=== PATIENT | male | born 1970 | race Two or more races ===

== ENCOUNTER 2019-09-18 12:16 | Inpatient (IN) | payer MEDICARE, MEDICAID ==
[~2019-09-18] VITALS: Ht 185.4 cm; Wt 85.4 kg
[2019-09-18 15:15] VITALS: BP 146/74
[2019-09-18] MEDS: QUEtiapine FUMARATE 100 MG TABLET PO PRN (16:06)
[2019-09-18 16:42] VITALS: BP 146/74
[2019-09-18] MEDS ORDERED: INFLUENZA VIRUS VACCINE QVS 2019-20 (3YR+)/PF 60 MCG/0.5 ML SYRINGE IM ONE (17:30)
[2019-09-18] MEDS: LORazepam 2 MG TABLET PO PRN (20:04)
[2019-09-18] MEDS ORDERED: DOCUSATE SODIUM 100 MG CAPSULE PO PRN (20:15)
[2019-09-18] MEDS ORDERED: GuaiFENesin/D-METHORPHAN [SUGAR-FREE] 200-20MG/10 ML SYRUP UDCUP PO PRN (20:15)
[2019-09-18] MEDS ORDERED: ONDANSETRON HCL 4 MG TABLET PO PRN (20:15)
[2019-09-18] MEDS ORDERED: ALBUTEROL SULFATE HFA 90 MCG/PUFF 8 GM INHALER IH PRN (20:15)
[2019-09-18] MEDS ORDERED: CloNIDine HCL 0.1 MG TABLET PO PRN (20:15)
[2019-09-18] MEDS ORDERED: MAGNESIUM HYDROXIDE SUSPENSION 30 ML UDCUP PO PRN (20:15)
[2019-09-18] MEDS ORDERED: ACETAMINOPHEN 325 MG TABLET PO PRN (20:15)
[2019-09-18] MEDS ORDERED: PETROLATUM,WHITE 28 GM JELLY TP PRN (20:15)
[2019-09-18] MEDS ORDERED: LOPERAMIDE HCL 2 MG CAPSULE PO PRN (20:15)
[2019-09-18] MEDS ORDERED: NICOTINE 14 MG/24 HOUR PATCH TD PRN (20:15)
[2019-09-19] MEDS: QUEtiapine FUMARATE 100 MG TABLET PO PRN (00:04)
[2019-09-19] MEDS: LORazepam 2 MG TABLET PO PRN ×3 (00:04→16:34)
[2019-09-19] MEDS: ZOLPIDEM TARTRATE 10 MG TABLET PO PRN ×2 (01:07→21:47)
[2019-09-19 06:15] VITALS: BP 122/83
[2019-09-19 08:32] VITALS: BP 126/89
[2019-09-19] MEDS: QUEtiapine FUMARATE 200 MG TABLET PO SCH ×3 (10:45→21:00)
[2019-09-19] MEDS: LITHIUM CARBONATE 300 MG TABLET PO SCH ×2 (10:45→16:05)
[2019-09-19 17:00] VITALS: BP 145/91
[2019-09-20 01:30] VITALS: BP 133/94
[2019-09-20] MEDS: LORazepam 2 MG TABLET PO PRN ×3 (01:40→19:49)
[2019-09-20] MEDS: QUEtiapine FUMARATE 100 MG TABLET PO PRN (02:40)
[2019-09-20 04:48] VITALS: BP 137/92
[2019-09-20] MEDS: IBUPROFEN 400 MG TABLET PO PRN (04:51)
[2019-09-20 07:20] LABS: BASOPHILS % (AUTO) 0.5 % (0.0-2.0); EOSINOPHILS % (AUTO) 4.5 % (1.0-6.0); HEMATOCRIT 37.5 % (41-53); HEMOGLOBIN 12.4 g/dL (13.5-17.5); LYMPHOCYTES % (AUTO) 13.7 % (22.0-44.0); MEAN CORPUSCULAR HEMOGLOBIN 28.9 pg (26.0-34.0); MEAN CORPUSCULAR HGB CONC 33.2 G/dL (31.0-37.0); MEAN CORPUSCULAR VOLUME 87 fL (80-100); MONOCYTES # (AUTO) 0.7 K/uL (0.1-1.0); MONOCYTES % (AUTO) 9.7 % (2.0-9.0); NEUTROPHILS # (AUTO) 5.4 K/uL (1.8-7.7); NEUTROPHILS % (AUTO) 71.6 % (40.0-70.0); PLATELET COUNT (AUTO) 277 K/uL (150-450)
[2019-09-20 07:37] LABS: HEMOGLOBIN A1C 5.6 % (4.5-6.2)
[2019-09-20 07:49] LABS: ALANINE AMINOTRANSFERASE 58 U/L (12-78); ALBUMIN 3.8 g/dL (3.4-5.0); ALKALINE PHOSPHATASE 68 U/L (46-116); ANION GAP 5 mmol/L (8-16); ASPARTATE AMINOTRANSFERASE 45 U/L (15-37); BILIRUBIN,TOTAL 0.3 mg/dL (0.1-1.0); CARBON DIOXIDE 31 mmol/L (22-29); CHLORIDE 102 mmol/L (98-107); CHOLESTEROL 127 mg/dL (131-200); CREATININE 1.17 mg/dL (0.60-1.30); GLOMERULAR FILTR. RATE CALC > 60 mL/min (>60); GLUCOSE,RANDOM 102 mg/dL (70-110); HDL CHOLESTEROL 65 mg/dL (40-60); LDL CHOL (CALC.) 53 mg/dL (0-130); POTASSIUM 3.4 mmol/L (3.5-5.1); SODIUM SERUM 138 mmol/L (136-145); THYROID STIMULATING HORMONE 0.38 uIU/mL (0.36-3.74); TOTAL PROTEIN, SERUM 7.6 g/dL (6.4-8.2); TRIGLYCERIDES 44 mg/dL (15-150); UREA NITROGEN, BLOOD 14 mg/dL (7-18)
[2019-09-20] MEDS: LITHIUM CARBONATE 300 MG TABLET PO SCH ×2 (08:03→16:30)
[2019-09-20] MEDS: QUEtiapine FUMARATE 200 MG TABLET PO SCH ×3 (08:03→21:06)
[2019-09-20 09:32] VITALS: BP 147/100
[2019-09-20] MEDS ORDERED: POTASSIUM CHLORIDE 20 MEQ ER TABLET PO ONE (12:00)
[2019-09-20 16:50] VITALS: BP 133/85
[2019-09-21 00:35] VITALS: BP 128/89
[2019-09-21] MEDS: QUEtiapine FUMARATE 100 MG TABLET PO PRN (00:45)
[2019-09-21 04:28] VITALS: BP 122/92
[2019-09-21] MEDS: IBUPROFEN 400 MG TABLET PO PRN (04:37)
[2019-09-21] MEDS: LORazepam 2 MG TABLET PO PRN ×4 (04:37→21:48)
[2019-09-21 05:28] VITALS: BP 143/87
[2019-09-21] MEDS: QUEtiapine FUMARATE 200 MG TABLET PO SCH ×3 (08:10→20:12)
[2019-09-21] MEDS: LITHIUM CARBONATE 300 MG TABLET PO SCH ×2 (08:12→16:18)
[2019-09-21 11:44] VITALS: BP 146/95
[2019-09-21 16:20] VITALS: BP 138/94
[2019-09-21 23:51] LABS: APPEARANCE,URINE CLEAR (CLEAR); BILIRUBIN,URINE NEGATIVE (NEGATIVE); GLUCOSE, URINE (UA) NEGATIVE (NEGATIVE); KETONES,URINE NEGATIVE (NEGATIVE); LEUKOCYTE ESTERASE ,URINE SMALL (NEGATIVE); NITRATE,URINE NEGATIVE (NEGATIVE); OCCULT BLOOD,URINE NEGATIVE (NEGATIVE); PH,URINE 6.5 (5.0-8.0); PROTEIN,URINE NEGATIVE (NEGATIVE); UROBILINOGEN,URINE 0.2 mg/dL (<=1.0)
[2019-09-21 23:56] LABS: AMPHET/METH SCREEN,URINE NEGATIVE (NEGATIVE); BARBITURATE SCREEN, URINE NEGATIVE (NEGATIVE); BENZODIAZEPINES SCREEN,URINE NEGATIVE (NEGATIVE); CANNABINOID SCREEN,URINE POSITIVE (NEGATIVE); COCAINE SCREEN,URINE NEGATIVE (NEGATIVE); METHADONE SCREEN, URINE NEGATIVE (NEGATIVE); OPIATE SCREEN,URINE NEGATIVE (NEGATIVE)
[2019-09-21 23:58] LABS: PHENCYCLIDINE SCREEN,URINE NEGATIVE (NEGATIVE)
[2019-09-22 00:04] LABS: BACTERIA,URINE None Seen /HPF (None Seen); RBC,URINE None Seen /HPF (0-2); SQUAMOUS EPITHELIAL CELL,UR None Seen /LPF (None Seen)
[2019-09-22 00:40] VITALS: BP 135/94
[2019-09-22] MEDS: ZOLPIDEM TARTRATE 10 MG TABLET PO PRN (00:46)
[2019-09-22] MEDS: QUEtiapine FUMARATE 100 MG TABLET PO PRN (00:46)
[2019-09-22] MEDS: LITHIUM CARBONATE 300 MG TABLET PO SCH ×2 (08:03→16:19)
[2019-09-22] MEDS: QUEtiapine FUMARATE 200 MG TABLET PO SCH ×3 (08:06→20:37)
[2019-09-22 08:39] VITALS: BP 137/93
[2019-09-22] MEDS: LORazepam 2 MG TABLET PO PRN ×2 (13:02→19:32)
[2019-09-22 18:29] VITALS: BP 162/105
[2019-09-23] MEDS: LORazepam 2 MG TABLET PO PRN ×3 (01:30→20:46)
[2019-09-23] MEDS: IBUPROFEN 400 MG TABLET PO PRN (01:35)
[2019-09-23] MEDS: MAG HYDROX/AL HYDROX/SIMETH ES 30 ML SUSPENSION UDCUP PO PRN (03:28)
[2019-09-23] MEDS: QUEtiapine FUMARATE 200 MG TABLET PO SCH ×3 (08:19→20:21)
[2019-09-23] MEDS: LITHIUM CARBONATE 300 MG TABLET PO SCH ×2 (08:21→16:48)
[2019-09-23 09:00] VITALS: BP 156/101
[2019-09-23] MEDS: QUEtiapine FUMARATE 100 MG TABLET PO PRN (12:51)
[2019-09-23 16:59] VITALS: BP 121/100
[2019-09-23] MEDS: ZOLPIDEM TARTRATE 10 MG TABLET PO PRN (21:26)
[2019-09-24 03:49] VITALS: BP 122/86
[2019-09-24 05:00] VITALS: BP 161/90
[2019-09-24] MEDS: QUEtiapine FUMARATE 200 MG TABLET PO SCH ×3 (08:07→21:51)
[2019-09-24] MEDS: LITHIUM CARBONATE 300 MG TABLET PO SCH ×2 (08:08→16:04)
[2019-09-24 09:35] VITALS: BP 115/69
[2019-09-24 10:19] VITALS: BP 120/72
[2019-09-24] MEDS: IBUPROFEN 400 MG TABLET PO PRN (10:19)
[2019-09-24] MEDS: LORazepam 2 MG TABLET PO PRN ×2 (10:19→19:20)
[2019-09-24] MEDS: MAG HYDROX/AL HYDROX/SIMETH ES 30 ML SUSPENSION UDCUP PO PRN (13:16)
[2019-09-24 18:43] VITALS: BP 149/111
[2019-09-24] MEDS: QUEtiapine FUMARATE 100 MG TABLET PO PRN (19:20)
[2019-09-25 04:25] VITALS: BP 138/95
[2019-09-25] MEDS: IBUPROFEN 400 MG TABLET PO PRN ×2 (04:28→14:42)
[2019-09-25] MEDS: QUEtiapine FUMARATE 200 MG TABLET PO SCH ×3 (08:22→20:09)
[2019-09-25] MEDS: LITHIUM CARBONATE 300 MG TABLET PO SCH ×2 (08:24→16:04)
[2019-09-25 08:39] VITALS: BP 147/100
[2019-09-25] MEDS: MAG HYDROX/AL HYDROX/SIMETH ES 30 ML SUSPENSION UDCUP PO PRN ×2 (12:54→20:09)
[2019-09-25 14:42] VITALS: BP 136/84
[2019-09-25] MEDS: LORazepam 2 MG TABLET PO PRN ×2 (14:42→21:49)
[2019-09-25 17:07] VITALS: BP 160/150
[2019-09-26 00:15] VITALS: BP 136/101
[2019-09-26 04:25] VITALS: BP 157/126
[2019-09-26] MEDS: MAG HYDROX/AL HYDROX/SIMETH ES 30 ML SUSPENSION UDCUP PO PRN (04:44)
[2019-09-26 05:31] VITALS: BP 148/119
[2019-09-26] MEDS: QUEtiapine FUMARATE 200 MG TABLET PO SCH (08:18)
[2019-09-26] MEDS: LITHIUM CARBONATE 300 MG TABLET PO SCH (08:19)
[2019-09-26 09:01] VITALS: BP 158/108
[2019-09-26] MEDS ORDERED: LITH300T PO (15:33)
[2019-09-26] MEDS ORDERED: QUET200T PO (15:34)
== END 2019-09-26 16:00 | disposition home or self-care (01) | DRG 885 ==
LOC: 3EX 14:45
DX: F31.2 Bipolar disorder, current episode manic severe with psychotic features (principal); R45.851 Suicidal ideations; F41.9 Anxiety disorder, unspecified; E87.6 Hypokalemia; R03.0 Elevated blood-pressure reading, without diagnosis of hypertension; Z59.0 Homelessness; Z88.8 Allergy status to other drugs, medicaments and biological substances; Z72.89 Other problems related to lifestyle; Z23 Encounter for immunization
CPT/HCPCS: 80307; 83036; 84132; 84443; 87081; 87086; G0378; Q0162